=== PATIENT | female | born 1975 | race Caucasian/White ===

== ENCOUNTER 2016-10-14 23:22 | Emergency (ER) | payer MEDICAID ==
[2016-10-15 01:36] LABS: BASOPHIL % 0.3 % (0-2); PLATELET COUNT 321 x10^3mcL (130-400); RED CELL DISTRIBUTION WIDTH 14.6 % (11.5-14.5)
[2016-10-15 01:44] LABS: CALCIUM 8.5 mg/dL (8.5-10.1); CARBON DIOXIDE 26.7 mmol/L (21-32); CHLORIDE SERUM 107 mmol/L (98-107); CREATININE SERUM 0.7 mg/dL (0.6-1.0); GFR1 > 60 mL/min; GLUCOSE SERUM 124 mg/dL (74-106); POTASSIUM SERUM 3.9 mmol/L (3.5-5.1); SODIUM SERUM 140 mmol/L (136-145)
[2016-10-15 01:49] LABS: ALBUMIN 3.3 g/dL (3.4-5.0); ALKALINE PHOSPHATASE 97 U/L (46-116); ALT/SGPT 24 U/L (14-59); AST/SGOT 18 U/L (15-37); BILIRUBIN TOTAL 0.18 mg/dL (0.20-1.00); CHOLESTEROL 179 mg/dL (<200); HDL CHOLESTEROL 31 mg/dL (40-60); MAGNESIUM 1.9 mg/dL (1.8-2.4); TOTAL PROTEIN, SERUM 7.1 g/dL (6.4-8.2)
[2016-10-15 02:05] LABS: AMPHETAMINE QUAL UR NONE DETECTED (NEG <=1000)
[2016-10-15 02:29] VITALS: BP 125/71
== END 2016-10-15 02:29 | disposition home or self-care (01) ==
LOC: ED 23:22
PROVIDERS: Emergency Medicine
DX: G43.909 Migraine, unspecified, not intractable, without status migrainosus (principal)
CPT/HCPCS: 80307; 83880; J1200; J2765; J7030; Q0092

== ENCOUNTER 2017-04-12 00:20 | Emergency (ER) | payer MEDICAID ==
[~2017-04-12] VITALS: Ht 160 cm; Wt 81.6 kg
[2017-04-12 02:17] VITALS: BP 125/74
== END 2017-04-12 02:17 | disposition home or self-care (01) ==
LOC: ED 00:20
DX: S16.1XXA Strain of muscle, fascia and tendon at neck level, initial encounter (principal); S39.012A Strain of muscle, fascia and tendon of lower back, initial encounter; S09.90XA Unspecified injury of head, initial encounter; S80.12XA Contusion of left lower leg, initial encounter; V49.40XA Driver injured in collision with unspecified motor vehicles in traffic accident, initial encounter; Y93.I9 Activity, other involving external motion; Y92.410 Unspecified street and highway as the place of occurrence of the external cause; Y99.8 Other external cause status
CPT/HCPCS: J1885

== ENCOUNTER 2019-06-06 19:12 | Emergency (ER) | payer MEDICAID ==
[~2019-06-06] VITALS: Ht 167.6 cm; Wt 80.3 kg
[2019-06-06 19:53] VITALS: BP 124/67; Ht 167.6 cm; Wt 80.3 kg
== END 2019-06-06 23:06 | disposition left against medical advice (07) ==
LOC: ED 19:12
DX: Z53.21 Procedure and treatment not carried out due to patient leaving prior to being seen by health care provider (principal)